=== PATIENT | female | born 1980 | race Two or more races ===

== ENCOUNTER 2019-05-14 01:13 | Inpatient (IN) | payer OTHER ==
[~2019-05-14] VITALS: Ht 170.2 cm; Wt 93.0 kg
== END 2019-05-17 14:27 | DRG 807 ==
LOC: LDR 01:13 → OB/GYN 01:13
PROVIDERS: ADMIT Obstetrics & Gynecology
PROC: 10E0XZZ Delivery of Products of Conception, External Approach (ICD-10-PCS; principal; 2019-05-14)
PROC: 0UQGXZZ Repair Vagina, External Approach (ICD-10-PCS; 2019-05-14)
PROC: 4A033R1 Measurement of Arterial Saturation, Peripheral, Percutaneous Approach (ICD-10-PCS; 2019-05-14)
PROC: 4A1HXCZ Monitoring of Products of Conception, Cardiac Rate, External Approach (ICD-10-PCS; 2019-05-14)
DX: O71.4 Obstetric high vaginal laceration alone (principal); Z37.0 Single live birth; Z3A.40 40 weeks gestation of pregnancy; Z22.330 Carrier of Group B streptococcus